=== PATIENT | female | born 1940 | race Hispanic/Latino ===

== ENCOUNTER 2017-05-20 14:25 | Outpatient (CLI) | payer MEDICARE, BC ==
--- NOTE | 2017-05-20 16:56 | RAD ---
EXAM: CERVICAL SPINE THREE VIEWS 05/20/17 HISTORY: Cervical disc degeneration. COMPARISON: 03/31/17. FINDINGS: Stable fusion changes at C5-C6. No perihardware lucency. The disc prosthesis is at the anterior unique in of the C5 level. There is moderate degenerative change at C6-C7. Evaluation of the cervicothoraci c junction is limited. Open mouth projection is suboptimal. On the AP projection, there are degenerative changes of the facets. IMPRESSION: Fusion changes as above. POS: [facility]
== END 2017-05-20 14:26 | disposition home or self-care (01) ==
LOC: TBSIIMAG 14:25
PROVIDERS: ATTEND Neurological Surgery
DX: M50.30 Other cervical disc degeneration, unspecified cervical region (principal); Z98.1 Arthrodesis status
CPT/HCPCS: 72040

== ENCOUNTER 2017-06-01 07:24 | Outpatient (CLI) | payer MEDICARE, BC ==
[2017-06-01 09:23] LABS: Hematocrit 38.5 % (36.0-47.0); Mean Platelet Volume 8.1 fL (7.4-10.4); Red Blood Cell (RBC) Count 4.14 mill/uL (4.20-5.40); White Blood Cell (WBC) Count 6.1 thou/uL (4.8-10.8)
[2017-06-01 09:36] LABS: PTT 28.1 SEC (22.9-36.1)
[2017-06-01 09:49] LABS: ALT (SGPT) 19 U/L (8-55); AST (SGOT) 10 U/L (5-34); Alkaline Phosphatase 117 U/L (40-150); Anion Gap 13 mmol/L (10-20); BUN (Urea Nitrogen) 19 mg/dL (9.8-20.1); Bilirubin, Total 0.3 mg/dL (0.2-1.2); Calc. Creatinine Clearance 0 mL/min (70-130); Carbon Dioxide 26 mmol/L (23-31); Chloride 103 mmol/L (98-107); Estimated GFR-MDRD 53; Globulin 3.2 g/dL (2.4-3.5); Protein, Total 6.9 g/dL (6.0-8.3)
== END 2017-06-01 07:25 | disposition home or self-care (01) ==
LOC: LABBT 07:24
PROVIDERS: ATTEND Internal Medicine Cardiovascular Disease
DX: Z01.818 Encounter for other preprocedural examination (principal); R94.39 Abnormal result of other cardiovascular function study
CPT/HCPCS: 80053; 85027; 85610; 85730; 93005; 93010

== ENCOUNTER 2017-06-05 06:19 | Day surgery (SDC) | payer MEDICARE, BC ==
[2017-06-01 08:31] VITALS: BMI 42.0
[2017-06-05] MEDS ORDERED: Midazolam HCl 2 mg/2 ml Vial ONE (08:38)
[2017-06-05] MEDS ORDERED: Fentanyl 100 MCG/2 ML VIAL ONE (08:38)
[2017-06-05] MEDS ORDERED: Heparin 10,000 UNITS/1 ML VIAL ONE (08:41)
[2017-06-05] MEDS ORDERED: Nitroglycerin 100MG/250ML BOT 250 ML ONE (08:41)
[2017-06-05] MEDS ORDERED: Verapamil 5 MG/2 ML VIAL ONE (08:41)
[2017-06-05] MEDS ORDERED: Iopamidol 370 76% 100 ML VIAL ONE (08:58)
== END 2017-06-05 11:28 | disposition home or self-care (01) ==
LOC: CCL 06:19
PROVIDERS: ATTEND Internal Medicine Cardiovascular Disease
DX: R94.39 Abnormal result of other cardiovascular function study (principal); I10 Essential (primary) hypertension; E11.9 Type 2 diabetes mellitus without complications; Z88.1 Allergy status to other antibiotic agents; Z79.899 Other long term (current) drug therapy; Z90.710 Acquired absence of both cervix and uterus; Z96.659 Presence of unspecified artificial knee joint; Z98.890 Other specified postprocedural states
CPT/HCPCS: 80061; 82962; 93458; C1769; 36416; 99152; J1644; J2250; J3010

== ENCOUNTER 2017-08-20 08:56 | Outpatient (CLI) | payer MEDICARE, BC ==
--- NOTE | 2017-08-20 09:58 | RAD ---
CERVICAL SPINE AP LATERAL STANDARD: HISTORY: M54.4, neck pain. COMPARISON: C-spine radiograph 05/20/17. FINDINGS: ACDF hardware is present at C5-6 without hardware complication. C6-7 narrowing is present with uncin ate process hypertrophy and anterior osteophytes. Moderate facet arthrosis. C1-2 articulation is no rmal. IMPRESSION: Unchanged examination. No evidence for hardware failure. POS: [facility]
== END 2017-08-20 08:57 | disposition home or self-care (01) ==
LOC: RAD 08:56
PROVIDERS: ATTEND Neurological Surgery
DX: M54.2 Cervicalgia (principal)
CPT/HCPCS: 72040

== ENCOUNTER 2017-11-11 14:30 | Emergency (ER) | payer MEDICARE, BC ==
[2017-11-11] MEDS ORDERED: HYDROcodone/Acetaminophen 10/325 mg Tablet ONE (15:51)
[2017-11-11] MEDS ORDERED: Ondansetron ODT 4 MG TAB ONE (15:51)
--- NOTE | 2017-11-11 16:45 | CT ---
NONCONTRAST CT HEAD 11/11/17 HISTORY: Patient tripped and fell in parking lot. Head pain and face pain. COMPARISON: 11/05/16. FINDINGS: again noted are chronic small vessel ischemic changes and cerebral volume loss, overall similar to th e prior exam. There is no evidence of an intraparenchymal or extra-axial hemorrhage. There is a right frontal scalp soft tissue swelling. The underlying calvarial structures are intact, and no depressed calvarial fracture is seen. There has been no other interval change from prior exam. IMPRESSION: 1. Right frontal scalp hematoma without evidence of an underlying fracture. 2. No acute intracranial abnormality demonstrated. 3. Stable chronic small vessel ischemic changes and cerebral volume loss. POS: [facility]
--- NOTE | 2017-11-11 16:54 | CT ---
NONCONTRAST CT FACIAL BONES: 11/11/17 HISTORY: Patient tripped and fell in the parking lot. Patient complains of head and face pain. COMPARISON: 10/07/14. FINDINGS: There is a large amount of anterior scalp soft tissue swelling. The orbits are normal and symmetric i n appearance bilaterally. [place] lenses are not visualized. No retrobulbar hematoma is seen. Degenerative changes are seen in the visualized limited upper cervical spine. The soft tissue swellin g adjacent to the left supraorbital region has resolved. IMPRESSION: 1. Large anterior frontal scalp hematoma. 2. No evidence of a fracture involving the facial bones. 3. Visualized paranasal sinuses and mastoid air cells are clear. 4. Degenerative changes in the cervical spine. POS: [facility]
--- NOTE | 2017-11-11 16:57 | CT ---
CT CERVICAL SPINE WITHOUT CONTRAST 11/11/17 COMPARISON: 11/05/16. HISTORY: Tripped and fell in the parking lot with neck pain. TECHNIQUE: Multiple contiguous axial images were obtained in a CT of the cervical spine without contrast. Sagitt al and coronal reformats were performed. FINDINGS: The patient is status post anterior fusion of C5 and C6. The vertebral bodies demonstrate normal heig ht and alignment without fracture or subluxation. No perihardware lucency is seen. no prevertebral so ft tissue swelling is present. The posterior facets are well aligned. Normal alignment of the skull base with the cervical spine is seen. IMPRESSION: Degenerative changes and postsurgical changes of the cervical spine without acute osseous abnormality . POS: [facility]
[2017-11-11] MEDS ORDERED: Ketorolac Tromethamine 30 MG/ML VIAL ONE (17:01)
--- NOTE | 2017-11-11 17:04 | RAD ---
FOUR VIEWS OF THE LEFT KNEE: 11/11/17 COMPARISON: None. HISTORY: Fall in parking lot and hit face on concrete. Left knee pain. FINDINGS: Four views of the left knee shows the patient to be status post left knee arthroplasty without periha rdware lucency or fracture. There are multiple phleboliths in soft tissues of the leg. Diffuse soft t issue swelling is seen. IMPRESSION: No evidence of acute osseous abnormality. POS: [facility]
== END 2017-11-11 17:43 | disposition home or self-care (01) ==
LOC: ERS 14:30
DX: S00.33XA Contusion of nose, initial encounter (principal); E78.5 Hyperlipidemia, unspecified; K21.9 Gastro-esophageal reflux disease without esophagitis; E11.9 Type 2 diabetes mellitus without complications; I10 Essential (primary) hypertension; Z79.4 Long term (current) use of insulin; Z79.899 Other long term (current) drug therapy; W01.0XXA Fall on same level from slipping, tripping and stumbling without subsequent striking against object, initial encounter
CPT/HCPCS: 70450; 70486; 72125; 96372; J1885; Q0162

== ENCOUNTER 2018-07-13 11:13 | Outpatient (CLI) | payer MEDICARE, BC ==
--- NOTE | 2018-07-13 12:51 | RAD ---
RADIOGRAPH CERVICAL SPINE 4 VIEWS: 07/13/2018 HISTORY: A 78-year-old female with cervical radiculopathy, M54.12. FINDINGS: Anterior metallic plate and screws at C5 and C6. Tiny metallic markers for interbody cage, in a slig htly widened C5-C6 intervertebral disk space. Broad indentation of the inferior endplate of C5, resu lting in loss of height of C5. Questionable similar finding involving the superior endplate of C6. Mild disk space narrowing at C6-C7. C7-T1 junction poorly visualized. The rest of the disk spaces a re maintained. Alignment is normal. No prevertebral soft tissue swelling. IMPRESSION: 1. Status post anterior cervical diskectomy and fusion at C5-C6. 2. Mild degenerative disk disease at C6-C7. TUNG [] POS: [facility]
== END 2018-07-13 11:14 | disposition home or self-care (01) ==
LOC: TBSIIMAG 11:13
PROVIDERS: ATTEND Neurological Surgery
DX: M50.123 Cervical disc disorder at C6-C7 level with radiculopathy (principal); Z98.1 Arthrodesis status
CPT/HCPCS: 72040

== ENCOUNTER 2018-07-13 12:44 | Emergency (ER) | payer MEDICARE, BC ==
[2018-07-13] MEDS ORDERED: HYDROcodone/Acetaminophen 5/325 mg Tablet ONE (13:01)
[2018-07-13] MEDS ORDERED: Lorazepam 2 MG/ML VIAL ONE (13:01)
--- NOTE | 2018-07-13 13:33 | CT ---
CT BRAIN WITHOUT CONTRAST: HISTORY: Fall with head trauma and right shoulder pain. COMPARISON: 11/11/2017 TECHNIQUE: Multiple contiguous axial images were obtained in a CT of the brain without contrast. FINDINGS: This exam is limited secondary to motion artifact. There is apparent hypodensity in the bilateral pa rietal occipital regions, but this may be artifactual. This is not definitely seen on the prior exam ination. Scattered hypodensities in the subcortical and periventricular white matter are likely seco ndary to small vessel ischemic disease. There is no evidence of hydrocephalus, intracranial hemorrha ge, or extraaxial fluid collection. There is soft tissue swelling in the right frontal scalp. The underlying calvarium is unremarkable. The visualized paranasal sinuses and mastoid air cells are well aerated. IMPRESSION: Questionable hypodense regions in the bilateral parietal and occipital lobes. This could be artifact ual or could be secondary to bilateral posterior cerebral artery infarctions. Correlate with symptom s. An MRI of the brain may be necessary for better characterization. There is no evidence of intrac ranial hemorrhage. POS: [facility]
--- NOTE | 2018-07-13 13:35 | CT ---
CT CERVICAL SPINE WITHOUT CONTRAST: HISTORY: Fall with head trauma and neck pain. COMPARISON: 11/11/2017 TECHNIQUE: Multiple contiguous axial images were obtained in a CT of the cervical spine without contrast. Sagit lukas and coronal reformats were performed. FINDINGS: The patient is status post anterior fusion of C5 and C6. The vertebral bodies demonstrate normal hei ght without fracture or subluxation. No prevertebral soft tissue swelling is seen. Moderate degener ative changes are seen in the lower cervical spine. The posterior facets are well aligned. Normal alignment of the skull base with the cervical spine is seen. IMPRESSION: Post surgical changes and degenerative changes of the cervical spine without acute osseous abnormalit y. POS: [facility]
[2018-07-13] MEDS ORDERED: PROPOFOL 0 ML ONE (13:45)
--- NOTE | 2018-07-13 14:22 | RAD ---
RIGHT SHOULDER TWO VIEW SERIES: Indication: Post-traumatic pain. FINDINGS: There is anterior and inferior dislocation of the proximal humerus relative to the scapular glenoid. There is fracture fragmentation associated with the dislocation. IMPRESSION: Fracture dislocation of the right shoulder. Recommend orthopedic consultation. POS: [facility]
[2018-07-13] MEDS ORDERED: Fentanyl 100 MCG/2 ML VIAL ONE ×2 (14:32→14:56)
[2018-07-13] MEDS ORDERED: PROPOFOL 20 ML ONE (15:17)
[2018-07-13] MEDS ORDERED: Ketorolac Tromethamine 30 MG/ML VIAL ONE (15:33)
--- NOTE | 2018-07-13 17:03 | RAD ---
2 VIEWS RIGHT SHOULDER: Date: 07/13/18 HISTORY: Fracture/dislocation right shoulder. COMPARISON: 07/13/18 at 1326 hours. FINDINGS: Two views of the right shoulder were performed. Both were marked post reduction. The first image show s inferior dislocation of the glenohumeral joint. The second image appears to show reduction of the s houlder with appropriate alignment of the glenohumeral joint. IMPRESSION: Interval reduction of the shoulder dislocation on the second image. POS: [facility]
--- NOTE | 2018-07-14 02:15 | CON ---
DATE OF CONSULTATION: CHIEF COMPLAINT: Right shoulder pain. HISTORY OF PRESENT ILLNESS: Ms. Brown is a 78-year-old female who was walking out of an office this afternoon, she tripped and fell forward. She landed on her right side. She had immediate shoulder pain and inability to raise her arm. She was taken by EMS to the emergency department. X-rays were obtained, which demonstrated anterior and inferior shoulder fracture dislocation. An attempted reduction was performed in the emergency room; however, this was unsuccessful. Orthopedics was consulted to further evaluate the patient. She is currently resting comfortably , but does have pain within the attempted shoulder motion. She is right-hand dominant. Family is at the bedside. PAST MEDICAL HISTORY: Chronic pain, hyperlipidemia, hypercholesterolemia, GERD, diabetes, and obesity. PAST SURGICAL HISTORY: Hysterectomy, appendectomy, cholecystectomy, and previous bilateral total knee arthroplasty. SOCIAL HISTORY: The patient denies tobacco, alcohol, or drug use. Her family is with her in the hospital today. FAMILY MEDICAL HISTORY: Noncontributory. REVIEW OF SYSTEMS: Positive for right shoulder pain, otherwise negative 10-point review of systems. ALLERGIES: TO CELEBREX. IMAGING STUDIES: X-rays demonstrate an anterior and inferior dislocation of the right shoulder. The patient also has fracture with comminution of the rotator cuff footprint at the greater tuberosity. PHYSICAL EXAMINATION: VITAL SIGNS: Blood pressure is 189/78, pulse is 71, respiratory rate is 18, and oxygen saturation is 99% on 2 L oxygen. GENERAL: She is lying supine, in no apparent distress. HEENT: Normocephalic, atraumatic. RESPIRATORY: Breathing comfortably. ABDOMEN: Obese, nontender. CARDIOVASCULAR: Pulses are palpable and regular. MUSCULOSKELETAL: The patient's right upper extremity has prominence of the humeral head anteriorly. She has pain with gentle motion. Full motion was not tested. She is able to flex and extend the digits. She cannot abduct the arm. She reports some numbness around the proximal shoulder. Palpable radial pulse. IMPRESSION: Right shoulder dislocation with fracture of the greater tuberosity suggestive of rotator cuff tear. PLAN: At this point, the patient needs a closed reduction maneuver. We will perform this in the emergency department using conscious sedation. She will be placed in a sling. At that point, she can go home, but followup in approximately 2 weeks for further evaluation. If she has significant dysfunction with rotator cuff weakness, we may need to obtain an MRI to better evaluate the rotator cuff. We will start her shoulder rehabilitation in 2 weeks. For now, she should stay in her sling and avoid abduction and external rotation. PROCEDURE NOTE: The patient was given propofol sedation. At this point, we performed a traction and counter-traction maneuver. The shoulder also required a superiorly directed force. Initial reduction was unsuccessful; however, repeat reduction was successful to reduce the shoulder, we confirmed this on x-ray exam. The patient awoke from her sedation in good condition. Job ID: [id number]
== END 2018-07-13 17:30 | disposition home or self-care (01) ==
LOC: ERS 12:44
DX: S43.034A Inferior dislocation of right humerus, initial encounter (principal); E78.5 Hyperlipidemia, unspecified; K21.9 Gastro-esophageal reflux disease without esophagitis; E11.9 Type 2 diabetes mellitus without complications; I10 Essential (primary) hypertension; Z79.899 Other long term (current) drug therapy; Z79.4 Long term (current) use of insulin; W01.0XXA Fall on same level from slipping, tripping and stumbling without subsequent striking against object, initial encounter
CPT/HCPCS: 23650; 70450; 72040; 72125; 96361; 96374; 96375; 99152; 99153; 99156; 99157; J1885; J2060; J2704; J3010

== ENCOUNTER 2018-07-23 02:13 | Emergency (ER) | payer MEDICARE, BC ==
[2018-07-23] MEDS ORDERED: HYDROcodone/Acetaminophen 10/325 mg Tablet ONE (03:04)
--- NOTE | 2018-07-23 08:08 | RAD ---
RIGHT HUMERUS 2 VIEWS: Date: 07/23/18 HISTORY: Dislocated a week ago. Persistent pain. FINDINGS: Multiple calification likely due to prior trauma. Probable fracture fragments. Irregularity along g reater tuberosity. Remainder of the right humerus is unremarkable. IMPRESSION: As above. POS: [facility]
--- NOTE | 2018-07-23 08:17 | RAD ---
RIGHT SHOULDER THREE VIEWS: HISTORY: Recent dislocation. Persistent pain. COMPARISON: 07/13/2018 FINDINGS: Multiple fracture fragments are redemonstrated. Irregularity involving the greater tuberosity. Bett er interrogation with MRI is recommended. IMPRESSION: Redemonstration of multiple fracture fragments. MRI is recommended. CODE T POS: [facility]
== END 2018-07-23 03:39 | disposition home or self-care (01) ==
LOC: ERS 02:13
DX: M25.511 Pain in right shoulder (principal); E78.5 Hyperlipidemia, unspecified; K21.9 Gastro-esophageal reflux disease without esophagitis; E11.9 Type 2 diabetes mellitus without complications; I10 Essential (primary) hypertension; Z79.899 Other long term (current) drug therapy; Z79.4 Long term (current) use of insulin

== ENCOUNTER 2018-08-19 07:37 | Outpatient (CLI) | payer MEDICARE, BC ==
--- NOTE | 2018-08-19 12:24 | MRI ---
MRI RIGHT SHOULDER: Date: 08/19/18 PROVIDED CLINICAL HISTORY: Right shoulder pain. FINDINGS: Comparison is made with right shoulder radiographs dated 07/23/18. There is marked marrow edema within the humeral head, particularly laterally. There is evidence for H ill-Sachs impaction fracture/greater tuberosity fracture, with several small displaced bone fragments , better demonstrated on previously performed radiograph. There is a markedly heterogeneous appearanc e to the components of the distal conjoined tendon. There are multiple small full thickness appearing foci of true fluid signal intensity involving the distal conjoined tendon. There is evidence for ass ociated partial thickness undersurface tearing with retraction of undersurface component to approxima tely the level of the acromion. No additional retracted tear is evident. The subscapularis and teres minor tendons appear intact. The long head biceps tendon appears intact and is normally located. There is a large glenohumeral joint effusion. Multiple intraarticular bodies are seen, including in t he axillary recess and superior subscapularis recess. The largest of these is located in the axillary recess and measures approximately 1.0 cm in greatest craniocaudal dimension. No displaced tear of th e glenoid labrum is evident. There is an indistinct and hyperintense appearance on fluid sensitive se quences involving the inferior glenohumeral ligament, particularly near its humeral attachment acls nurse iorly. Acromioclavicular joint osteoarthrosis is demonstrated. There is greater than physiologic subacromial /subdeltoid bursal fluid. Rotator cuff muscular volume appears preserved. Patchy increased signal int ensity on fluid sensitive sequences involving subscapularis and teres minor muscles. IMPRESSION: 1. Evidence for Hill-Sachs impaction/greater tuberosity fracture with comminution and displacement o f several fragments, better demonstrated on prior radiographs. No displaced glenoid labral tear is ev ident. There is partial tearing of the inferior glenohumeral ligament from its humeral attachment. 2. High grade partial thickness undersurface retracted tearing of the supraspinatus tendon with mult iple small full thickness foci of linear fluid signal intensity involving the nonretracted superficia l fibers of the distal conjoined tendon compatible with foci of full thickness tearing. 3. Large glenohumeral joint effusion with intraarticular bodies. 4. Muscular strains involving subscapularis and teres minor muscles. 5. Acromioclavicular joint osteoarthrosis. POS: [facility]
== END 2018-08-19 07:38 | disposition home or self-care (01) ==
LOC: MRI 07:37
PROVIDERS: ATTEND Orthopaedic Surgery
DX: S43.004A Unspecified dislocation of right shoulder joint, initial encounter (principal); M19.011 Primary osteoarthritis, right shoulder; M25.411 Effusion, right shoulder; S42.91XA Fracture of right shoulder girdle, part unspecified, initial encounter for closed fracture; S46.811A Strain of other muscles, fascia and tendons at shoulder and upper arm level, right arm, initial encounter

== ENCOUNTER 2018-09-22 20:11 | Emergency (ER) | payer MEDICARE, BC ==
--- NOTE | 2018-09-22 22:17 | RAD ---
THREE VIEWS OF THE RIGHT FOOT: 09/22/18 INDICATION: Laceration right foot. COMPARISON: None. FINDINGS: There is scattered osteoarthrosis of the right foot. No acute fracture or subluxation is evident. Ent hesopathic changes seen off of the calcaneus. IMPRESSION: No acute osseous abnormality. POS: [facility]
[2018-09-22] MEDS ORDERED: Adacel (T-DAP) 0.5 ML SYRINGE ONE (22:36)
[2018-09-22] MEDS ORDERED: Lidocaine 1% (PF) 30 ML VIAL ONE (22:49)
[2018-09-22] MEDS ORDERED: Bacitracin Zinc 1 Packet ONE (23:36)
== END 2018-09-22 23:00 | disposition home or self-care (01) ==
LOC: ERS 20:11
DX: S91.311A Laceration without foreign body, right foot, initial encounter (principal); E78.5 Hyperlipidemia, unspecified; K21.9 Gastro-esophageal reflux disease without esophagitis; E11.9 Type 2 diabetes mellitus without complications; I10 Essential (primary) hypertension; F32.9 Major depressive disorder, single episode, unspecified; Z79.899 Other long term (current) drug therapy; Z79.4 Long term (current) use of insulin; W26.9XXA Contact with unspecified sharp object(s), initial encounter
CPT/HCPCS: 12001; 90471; 90715; J2001

== ENCOUNTER 2018-09-23 06:44 | Day surgery (SDC) | payer MEDICARE, BC ==
[2018-09-22 15:41] VITALS: BMI 42.0
[~2018-09-23 06:44] MED LIST: Prevnar 13-Val Conj/PF 0.5 ML SYRINGE IM ONE
--- NOTE | 2018-09-23 09:28 | RAD ---
CERVICAL MYELOGRAM: HISTORY: M47.12, cervical spondylosis with myelopathy. COMPARISON: None. FINDINGS: The patient was brought to the fluoroscopy suite. All questions were answered. The patient's back was prepped and draped in the normal sterile fashion. Informed consent was obtain ed. A time out was performed. Approximately 3 mL of buffered Lidocaine was instilled into the superficial and deep soft tissues. U sing a 5-inch 22 gauge spinal needle, the L3-L4 interspace was accessed, and 10 mL of Isovue-300 was instilled into the thecal sac. The patient was put in the reverse Trendelenburg position. IMPRESSION: Technically successful fluoroscopic-guided cervical myelogram. FLUOROSCOPY TIME: One minute. POS: [facility]
--- NOTE | 2018-09-23 10:38 | CT ---
CT CERVICAL SPINE WITH CONTRAST: Date: 09/21/18 HISTORY: Pain. COMPARISON: Myelogram same date. CT cervical spine without contrast dated 07/13/18. FINDINGS: CT cervical spine performed after the intrathecal administration of contrast. ACDF hardware at C5-6 is intact with diskectomy change without migration of the diskectomy spacer. No acute fracture or malalignment. Advanced degenerative disease of the atlantodental interval. The o ccipital condyles are intact. No cervical adenopathy. Lung apices are clear. Levels are as follows: C2-3: There is mild uncinate process hypertrophy bilaterally. There is a right lateral recess teletypewriter installer ior disc osteophyte complex. Mild right-sided neural foraminal narrowing. No significant spinal canal narrowing. There is fusion of the right C2-C3 facet with moderate degenerative disease at the left C 2-3 facet joint. C3-4: Mild degenerative disc space height loss. Mild uncinate process hypertrophy. There is severe l eft-sided facet arthropathy and hypertrophic osteophyte formation. This causes mild left-sided neural foraminal narrowing. No significant right-sided neural foraminal narrowing. C4-5: There is a broad based posterior disc osteophyte complex. This causes mild effacement of the ventral CSF space with spinal canal measuring approximately 9.0 mm. There is moderate uncinate process hypert rophy, worse on the right than the left. There is severe right and moderate left-sided facet arthropa thy. Moderate to severe right and moderate left-sided neural foraminal narrowing. C5-6: There is a broad based posterior disc osteophyte complex causing mild effacement of the ventra l CSF space. Spinal canal measures approximately 7.0 mm. Moderate uncinate process hypertrophy. There is moderate left and moderate right-sided hypertrophic facet changes. There is moderate bilateral ne ural foraminal narrowing, predominantly due to uncinate process hypertrophy. C6-7: There is mild uncinate process hypertrophy. Small bilateral subforaminal disc osteophyte compl exes. Mild facet arthropathy on the right and moderate on the left. No significant neural foraminal n arrowing on the right. Uncinate process hypertrophy with moderate neural foraminal narrowing on the l eft. IMPRESSION: Mild to moderate spondylosis as described. No evidence for hardware failure. POS: [facility]
== END 2018-09-23 10:20 | disposition home or self-care (01) ==
LOC: RAD 06:44 → EDSTATUS 08:00 → RAD 10:20
PROVIDERS: ATTEND Neurological Surgery
PROC: B01B1ZZ Fluoroscopy of Spinal Cord using Low Osmolar Contrast (ICD-10-PCS; principal; 2018-09-23)
DX: M47.12 Other spondylosis with myelopathy, cervical region (principal); E11.9 Type 2 diabetes mellitus without complications; M19.90 Unspecified osteoarthritis, unspecified site; G47.00 Insomnia, unspecified; I10 Essential (primary) hypertension; E78.5 Hyperlipidemia, unspecified; K21.9 Gastro-esophageal reflux disease without esophagitis; Z79.4 Long term (current) use of insulin; Z79.899 Other long term (current) drug therapy; Z88.6 Allergy status to analgesic agent
CPT/HCPCS: 62302; 72126

== ENCOUNTER 2018-11-25 15:08 | Outpatient (CLI) | payer MEDICARE, BC ==
--- NOTE | 2018-11-25 15:16 | RAD ---
Exam:Right foot 3 views HISTORY: Wound pain. COMPARISON: 09/22/2018 FINDINGS: Lisfranc alignment is maintained. Chronic changes. No acute fracture. Stable hypertrophy of the calcaneus at the Achilles tendon insertion site and the insertion site of the plantar aponeurosis. Soft tissue swelling and possible ulceration of the plantar soft tissues at the level of the calcaneus. IMPRESSION: 1. No acute osseous abnormality. 2. Possible plantar soft tissue swelling and ulceration at the level calcaneus.
== END 2018-11-25 15:09 | disposition home or self-care (01) ==
LOC: RAD-FRANK 15:08
PROVIDERS: ATTEND Nurse Practitioner Family
DX: S91.301A Unspecified open wound, right foot, initial encounter (principal)

== ENCOUNTER 2019-07-14 15:39 | Outpatient (CLI) | payer MEDICARE, BC ==
--- NOTE | 2019-07-14 15:53 | RAD ---
RADIOGRAPH CHEST 2 VIEWS: 07/14/2019 HISTORY: A 79-year-old female with abnormal breath sounds, wheezing. FINDINGS: The thoracic aorta is tortuous and ectatic. There is no evidence of air space density, pneumothorax, or pulmonary edema. There is no cardiomegaly or pleural effusion. IMPRESSION: 1) No acute cardiopulmonary findings. 2) Ectasia of thoracic aorta. jayjay [] POS: [facility]
== END 2019-07-14 15:40 | disposition home or self-care (01) ==
LOC: RAD-FRANK 15:39
PROVIDERS: ATTEND Nurse Practitioner Family
DX: J01.10 Acute frontal sinusitis, unspecified (principal); R06.2 Wheezing; R68.89 Other general symptoms and signs; R05 Cough; I77.810 Thoracic aortic ectasia
CPT/HCPCS: 71046

== ENCOUNTER 2019-08-09 09:24 | Outpatient (CLI) | payer MEDICARE, BC ==
--- NOTE | 2019-08-09 10:45 | MRI ---
EXAM: MRI of right ankle without contrast PROVIDED CLINICAL HISTORY: Cutaneous abscess COMPARISON: None FINDINGS: The region of clinical interest is not indicated by the technologist. Regional marrow and muscular signal appear normal. There is no regional joint effusion is evident. Alignment appears anatomic. Joint spaces appear prese rved. No significant regional tenosynovial fluid. Split tearing of the peroneus brevis tendon is noted. The anterior extensor, medial flexor and peroneal tendons appear otherwise intact. The examina tion is not optimized for evaluation for internal derangement. Intact fibers of the anterior talofibular ligament are not definitely identified. There is no evidence for a focal fluid collection to suggest abscess, with limitations due to lack of IV contrast. IMPRESSION: 1. No evidence for focal fluid collection to suggest abscess with limitations due to lack of IV contr ast. 2. Split tearing of the peroneus brevis tendon at the level of the lateral malleolus.
== END 2019-08-09 09:25 | disposition home or self-care (01) ==
LOC: MRI 09:24
PROVIDERS: ATTEND Podiatrist
DX: L02.611 Cutaneous abscess of right foot (principal); E11.40 Type 2 diabetes mellitus with diabetic neuropathy, unspecified; S96.911A Strain of unspecified muscle and tendon at ankle and foot level, right foot, initial encounter

== ENCOUNTER 2021-11-07 13:21 | Outpatient (CLI) | payer MEDICARE | END 2021-11-07 13:22 | disposition home or self-care (01) | LOC: RAD-FRANK 13:21 | PROVIDERS: ATTEND Nurse Practitioner Family | DX: M79.641 Pain in right hand (principal); M19.041 Primary osteoarthritis, right hand ==

== ENCOUNTER 2022-07-16 10:21 | Emergency (ER) | payer MEDICARE ==
[2022-07-16] MEDS ORDERED: Morphine 4 MG/ML VIAL ONE (12:42)
== END 2022-07-16 13:29 | disposition home or self-care (01) ==
LOC: ERS 10:21
DX: S70.01XA Contusion of right hip, initial encounter (principal); E78.00 Pure hypercholesterolemia, unspecified; K21.9 Gastro-esophageal reflux disease without esophagitis; E11.9 Type 2 diabetes mellitus without complications; I10 Essential (primary) hypertension; Z79.899 Other long term (current) drug therapy; Z79.4 Long term (current) use of insulin; W19.XXXA Unspecified fall, initial encounter
CPT/HCPCS: 96372; J2270

== ENCOUNTER 2023-09-29 10:54 | Emergency (ER) | payer MEDICARE ==
[2023-09-29] MEDS ORDERED: Acetaminophen 500 MG TAB ONE (12:09)
[2023-09-29] MEDS ORDERED: Lidocaine 4% Patch TD SCH (12:30)
[2023-09-30] MEDS ORDERED: Transdermal Patch Removal TOP SCH (00:30)
== END 2023-09-29 13:54 | disposition home or self-care (01) ==
LOC: ERS 10:54
DX: R07.89 Other chest pain (principal); I10 Essential (primary) hypertension; E11.9 Type 2 diabetes mellitus without complications; K21.9 Gastro-esophageal reflux disease without esophagitis; E78.00 Pure hypercholesterolemia, unspecified; W18.09XA Striking against other object with subsequent fall, initial encounter; Y93.01 Activity, walking, marching and hiking; Z55.6 Problems related to health literacy; Z79.4 Long term (current) use of insulin; Z79.899 Other long term (current) drug therapy
CPT/HCPCS: 71045

== ENCOUNTER 2023-10-02 10:50 | Outpatient (CLI) | payer MEDICARE | END 2023-10-02 10:51 | disposition home or self-care (01) | LOC: BICRAD 10:50 | PROVIDERS: ATTEND Nurse Practitioner Family | DX: R58 Hemorrhage, not elsewhere classified (principal); R29.6 Repeated falls; M47.816 Spondylosis without myelopathy or radiculopathy, lumbar region; M51.34 Other intervertebral disc degeneration, thoracic region | CPT/HCPCS: 72072; 72100 ==

== ENCOUNTER 2024-02-12 06:13 | Emergency (ER) | payer MEDICARE ==
[2024-02-12 08:16] LABS: #Basophils Less than 0.03 10x3/uL (0.0-0.2); %Basophils 0.2 % (0.0-1.0); %Eosinophils 1.9 % (0.0-10.0); %Lymphocytes 16.9 % (21.0-51.0); %Monocytes 10.2 % (0.0-10.0); %Neutrophils 70.3 % (42.0-75.0); Hematocrit 37.8 % (36.0-47.0); Hemoglobin 12.4 g/dL (12.0-16.0); Mean Corpuscular HGB CONC 32.8 g/dL (32.0-36.0); Mean Corpuscular Hemoglobin 31.4 pg (27.0-31.0); Mean Corpuscular Volume 95.7 fL (78.0-98.0); Mean Platelet Volume 10.2 fL (7.4-10.4); Platelet Count 188 10x3/uL (130-400); RBC Distribution Width 13.2 % (11.5-14.5); Red Blood Cell (RBC) Count 3.95 mill/uL (4.20-5.40)
[2024-02-12] MEDS ORDERED: Morphine 4 MG/ML VIAL ONE (08:18)
[2024-02-12] MEDS ORDERED: Ondansetron PF 4 MG/2 ML Vial ONE (08:18)
[2024-02-12 08:28] LABS: Bacteria/HPF 4+ HPF (None Seen); Bilirubin 1+ (Negative); Blood, Urine Trace (Negative); CAUTI Indications for Culture Pelvic or flank pain; Clarity Turbid (Clear); Glucose, Urine (Dipstick) 50 mg/dL (Negative); Ketone, Urine Trace mg/dL (Negative); Leukocyte 75 Leu/uL (Negative); Nitrite 2+ (Negative); Protein, Urine (Dipstick) 600 mg/dL (Neg-Trace); Specific Gravity, Urine 1.028 (1.002-1.036); WBC/HPF Greater than 50 HPF (0-3)
[2024-02-12 08:32] LABS: ALT (SGPT) 142 U/L (8-55); AST (SGOT) 62 U/L (5-34); Albumin 3.2 g/dL (3.4-4.8); Alkaline Phosphatase 190 U/L (40-110); Anion Gap 15 mmol/L (10-20); BUN (Urea Nitrogen) 22 mg/dL (9.8-20.1); Bilirubin, Total 0.5 mg/dL (0.2-1.2); Calc. Creatinine Clearance 0 mL/min (70-130); Calcium 8.9 mg/dL (7.8-10.44); Carbon Dioxide 20 mmol/L (23-31); Chloride 107 mmol/L (98-107); Estimated GFR 46; Globulin 3.4 g/dL (2.4-3.5); Glucose 208 mg/dL (83-110); Potassium 3.5 mmol/L (3.5-5.1); Protein, Total 6.6 g/dL (5.8-8.1); Sodium 138 mmol/L (136-145)
[2024-02-12 08:37] LABS: Troponin I Less than 0.010 ng/mL (< 0.028)
[2024-02-12 08:45] LABS: Urine Culture Reflex Yes Yes
[2024-02-12] MEDS ORDERED: Iopamidol-370 76% 500 ML MDV (1 ML CHARGE) ONE (11:34)
[2024-02-12 15:29] LABS: Campy jejuni + coli by PCR Negative (Negative); STEC Shiga Toxin 1+2 Negative (Negative); Salmonella spp. by PCR Negative (Negative); Shigella spp + EIEC by PCR Negative (Negative)
== END 2024-02-12 10:13 | disposition home or self-care (01) ==
LOC: ERS 06:13
DX: N39.0 Urinary tract infection, site not specified (principal); D73.4 Cyst of spleen; R19.7 Diarrhea, unspecified; Q44.5 Other congenital malformations of bile ducts; I10 Essential (primary) hypertension; E11.9 Type 2 diabetes mellitus without complications
CPT/HCPCS: 74177; 80053; 81001; 83690; 84484; 85025; 87077; 87086; 87186; 87505; 93005; J2270; J2405; Q9967; 51701; 96374; 96375

== ENCOUNTER 2024-02-17 11:21 | Emergency (ER) | payer MEDICARE ==
[2024-02-17 12:09] LABS: #Basophils Less than 0.03 10x3/uL (0.0-0.2); %Basophils 0.4 % (0.0-1.0); %Eosinophils 2.3 % (0.0-10.0); %Lymphocytes 27.6 % (21.0-51.0); %Monocytes 10.6 % (0.0-10.0); %Neutrophils 58.3 % (42.0-75.0); Hematocrit 35.5 % (36.0-47.0); Mean Corpuscular HGB CONC 33.8 g/dL (32.0-36.0); Mean Corpuscular Hemoglobin 31.5 pg (27.0-31.0); Mean Corpuscular Volume 93.2 fL (78.0-98.0); Mean Platelet Volume 10.1 fL (7.4-10.4); Platelet Count 237 10x3/uL (130-400); RBC Distribution Width 13.2 % (11.5-14.5); Red Blood Cell (RBC) Count 3.81 mill/uL (4.20-5.40)
[2024-02-17 12:39] LABS: ALT (SGPT) 51 U/L (8-55); AST (SGOT) 22 U/L (5-34); Albumin 3.3 g/dL (3.4-4.8); Alkaline Phosphatase 104 U/L (40-110); Anion Gap 12 mmol/L (10-20); BUN (Urea Nitrogen) 15 mg/dL (9.8-20.1); Bilirubin, Total 0.4 mg/dL (0.2-1.2); Calc. Creatinine Clearance 0 mL/min (70-130); Calcium 8.7 mg/dL (7.8-10.44); Carbon Dioxide 21 mmol/L (23-31); Chloride 114 mmol/L (98-107); Estimated GFR 57; Globulin 3.4 g/dL (2.4-3.5); Glucose 138 mg/dL (83-110); Potassium 3.6 mmol/L (3.5-5.1); Protein, Total 6.7 g/dL (5.8-8.1); Sodium 143 mmol/L (136-145)
[2024-02-17] MEDS ORDERED: Ketorolac Tromethamine 30 MG (1 mL) VIAL ONE (12:58)
[2024-02-17] MEDS ORDERED: Ondansetron PF 4 MG/2 ML Vial ONE (12:58)
[2024-02-17] MEDS ORDERED: Loperamide HCl 2 MG CAP ONE ×2 (14:34→14:38)
== END 2024-02-17 14:58 | disposition home or self-care (01) ==
LOC: ERS 11:21
DX: A09 Infectious gastroenteritis and colitis, unspecified (principal); E78.00 Pure hypercholesterolemia, unspecified; K21.9 Gastro-esophageal reflux disease without esophagitis; E11.9 Type 2 diabetes mellitus without complications; I10 Essential (primary) hypertension; Z79.4 Long term (current) use of insulin; Z79.899 Other long term (current) drug therapy
CPT/HCPCS: 80053; 85025; J1885; J2405; 96361; 96374; 96375

== ENCOUNTER 2024-07-07 12:59 | Inpatient (IN) | payer MEDICARE, OTHER ==
[2024-07-07] MEDS ORDERED: Acetaminophen 325 MG TAB ONE (13:52)
[2024-07-07] MEDS ORDERED: Piperacillin/Tazobactam 4.5 GM VIAL ONE (13:53)
[2024-07-07] MEDS ORDERED: Sodium Chloride 0.9% 100 ML ONE (13:53)
[2024-07-07 14:00] LABS: #Basophils Less than 0.03 10x3/uL (0.0-0.2); %Basophils 0.4 % (0.0-1.0); %Lymphocytes 24.2 % (21.0-51.0); %Monocytes 7.9 % (0.0-10.0); %Neutrophils 64.1 % (42.0-75.0); Hematocrit 32.5 % (36.0-47.0); Mean Corpuscular HGB CONC 33.8 g/dL (32.0-36.0); Mean Corpuscular Hemoglobin 31.1 pg (27.0-31.0); Mean Corpuscular Volume 91.8 fL (78.0-98.0); Mean Platelet Volume 10.6 fL (7.4-10.4); Platelet Count 214 10x3/uL (130-400); RBC Distribution Width 12.7 % (11.5-14.5); Red Blood Cell (RBC) Count 3.54 mill/uL (4.20-5.40)
[2024-07-07] MEDS ORDERED: Senokot S 8.6-50 MG TAB PO PRN (14:39)
[2024-07-07] MEDS ORDERED: Ondansetron ODT 4 MG TAB PO PRN (14:39)
[2024-07-07] MEDS ORDERED: Ondansetron PF 4 MG/2 ML Vial IVP PRN (14:39)
[2024-07-07] MEDS ORDERED: Dextrose 50% Abboject 50 ML SYRINGE SLOW IVP PRN (14:41)
[2024-07-07] MEDS ORDERED: Dextrose 5% in Water 1,000 ML IV PRN (14:41)
[2024-07-07] MEDS ORDERED: Glucagon 1 MG/ML KIT IM PRN (14:41)
[2024-07-07 15:06] LABS: ALT (SGPT) 10 U/L (8-55); AST (SGOT) 11 U/L (5-34); Albumin 2.9 g/dL (3.4-4.8); Alkaline Phosphatase 92 U/L (40-110); Anion Gap 11 mmol/L (10-20); BUN (Urea Nitrogen) 21 mg/dL (9.8-20.1); Bilirubin, Total 0.3 mg/dL (0.2-1.2); Calc. Creatinine Clearance 0 mL/min (70-130); Calcium 8.7 mg/dL (7.8-10.44); Carbon Dioxide 23 mmol/L (23-31); Chloride 110 mmol/L (98-107); Estimated GFR 58; Globulin 3.7 g/dL (2.4-3.5); Glucose 223 mg/dL (83-110); Potassium 4.3 mmol/L (3.5-5.1); Protein, Total 6.6 g/dL (5.8-8.1); Sodium 140 mmol/L (136-145)
[2024-07-07] MEDS: Amlodipine 5 MG TAB PO SCH (17:23)
[2024-07-07 17:44] VITALS: BMI 39.9
[2024-07-07] MEDS: Vancomycin (BATCH) 2.5 GM in Premix 1 BAG IVPB SCH (18:09)
[2024-07-07] MEDS: Ampicillin/Sulbactam 3 GM in Sodium Chloride 0.9% 100 ML IVPB SCH (18:20)
[2024-07-07] MEDS: Insulin Lispro 100 UNIT/ML 10 ML VIAL SC PRN ×2 (18:21→21:27)
[2024-07-07] MEDS ORDERED: Melatonin 3 MG TAB PO PRN (18:58)
[2024-07-07] MEDS: hydrALAZINE 20 MG/ML VIAL SLOW IVP SCH (19:45)
[2024-07-07] MEDS: Acetaminophen 325 MG TAB PO PRN (21:38)
[2024-07-08 04:51] LABS: #Basophils 0.03 10x3/uL (0.0-0.2); %Basophils 0.7 % (0.0-1.0); %Eosinophils 4.8 % (0.0-10.0); %Lymphocytes 24.3 % (21.0-51.0); %Monocytes 10.3 % (0.0-10.0); %Neutrophils 58.9 % (42.0-75.0); Hemoglobin 10.5 g/dL (12.0-16.0); Mean Corpuscular HGB CONC 33.9 g/dL (32.0-36.0); Mean Corpuscular Hemoglobin 30.6 pg (27.0-31.0); Mean Corpuscular Volume 90.4 fL (78.0-98.0); Mean Platelet Volume 10.5 fL (7.4-10.4); Platelet Count 188 10x3/uL (130-400); RBC Distribution Width 12.6 % (11.5-14.5); Red Blood Cell (RBC) Count 3.43 mill/uL (4.20-5.40)
[2024-07-08 05:42] LABS: Anion Gap 11 mmol/L (10-20); BUN (Urea Nitrogen) 17 mg/dL (9.8-20.1); Calc. Creatinine Clearance 102 mL/min (70-130); Calcium 8.4 mg/dL (7.8-10.44); Carbon Dioxide 25 mmol/L (23-31); Chloride 108 mmol/L (98-107); Estimated GFR 72; Glucose 147 mg/dL (83-110); Sodium 140 mmol/L (136-145)
[2024-07-08] MEDS ORDERED: Non-Formulary Item 1 EACH (Losartan/Hydrochlorothiazide [Losartan-Hctz 100-25 Mg Tab] 1 E PO SCH (09:00)
[2024-07-08] MEDS: Hydrochlorothiazide 25 MG TAB PO SCH (09:10)
[2024-07-08] MEDS: Mirabegron ER 25 MG ER.TAB PO SCH (09:10)
[2024-07-08] MEDS: Amlodipine 5 MG TAB PO SCH (09:11)
[2024-07-08] MEDS: Sertraline 100 MG TAB PO SCH (09:11)
[2024-07-08] MEDS: Enoxaparin 40 MG (0.4 mL) SYRINGE SC SCH (09:11)
[2024-07-08] MEDS: Losartan 25 MG TAB PO SCH (09:11)
[2024-07-08 11:10] VITALS: BMI 39.9
[2024-07-08] MEDS: Sodium Chloride 0.9% 1,000 ML IV SCH (11:57)
[2024-07-08] MEDS: VANCOMYCIN 1.25 GM/250 ML BAG 1.25 GM in Premix 1 BAG IVPB SCH (16:51)
[2024-07-09 05:30] LABS: #Basophils Less than 0.03 10x3/uL (0.0-0.2); %Basophils 0.6 % (0.0-1.0); %Lymphocytes 29.7 % (21.0-51.0); %Monocytes 11.7 % (0.0-10.0); %Neutrophils 52.2 % (42.0-75.0); Hematocrit 30.3 % (36.0-47.0); Hemoglobin 10.2 g/dL (12.0-16.0); Mean Corpuscular HGB CONC 33.7 g/dL (32.0-36.0); Mean Corpuscular Volume 92.1 fL (78.0-98.0); Platelet Count 193 10x3/uL (130-400); RBC Distribution Width 12.7 % (11.5-14.5); Red Blood Cell (RBC) Count 3.29 mill/uL (4.20-5.40)
[2024-07-09 05:43] LABS: Anion Gap 10 mmol/L (10-20); BUN (Urea Nitrogen) 18 mg/dL (9.8-20.1); Calc. Creatinine Clearance 97 mL/min (70-130); Calcium 8.3 mg/dL (7.8-10.44); Carbon Dioxide 24 mmol/L (23-31); Cardiac Risk 5.6 (Less than 4.5); Chloride 107 mmol/L (98-107); Cholesterol 150 mg/dl (< 200 Desired); Estimated GFR 68; Glucose 241 mg/dL (83-110); HDL Cholesterol 27 mg/dL (>60 Neg Risk); LDL Cholesterol, Calculated 91 mg/dL; Potassium 3.9 mmol/L (3.5-5.1); Sodium 137 mmol/L (136-145); Triglycerides 160 mg/dL (Less than 150)
[2024-07-09] MEDS: Aspirin 81 mg Enteric Coated Tablet PO SCH (09:48)
[2024-07-09] MEDS: Amlodipine 5 MG TAB PO SCH ×2 (09:48→20:22)
[2024-07-10 05:42] LABS: #Basophils 0.03 10x3/uL (0.0-0.2); %Basophils 0.8 % (0.0-1.0); %Eosinophils 5.3 % (0.0-10.0); %Monocytes 11.8 % (0.0-10.0); %Neutrophils 46.3 % (42.0-75.0); Hematocrit 33.5 % (36.0-47.0); Hemoglobin 11.3 g/dL (12.0-16.0); Mean Corpuscular HGB CONC 33.7 g/dL (32.0-36.0); Mean Corpuscular Hemoglobin 30.4 pg (27.0-31.0); Mean Corpuscular Volume 90.1 fL (78.0-98.0); Mean Platelet Volume 10.2 fL (7.4-10.4); Platelet Count 213 10x3/uL (130-400); RBC Distribution Width 12.6 % (11.5-14.5); Red Blood Cell (RBC) Count 3.72 mill/uL (4.20-5.40)
[2024-07-10 06:05] LABS: Anion Gap 12 mmol/L (10-20); BUN (Urea Nitrogen) 21 mg/dL (9.8-20.1); Calc. Creatinine Clearance 95 mL/min (70-130); Carbon Dioxide 24 mmol/L (23-31); Chloride 105 mmol/L (98-107); Estimated GFR 66; Glucose 207 mg/dL (83-110); Potassium 3.9 mmol/L (3.5-5.1); Sodium 137 mmol/L (136-145)
[2024-07-10] MEDS: hydrALAZINE 25 MG TAB PO SCH ×2 (11:16→15:49)
[2024-07-10] MEDS ORDERED: Vancomycin (BATCH) 1.25 GM in Premix 1 BAG IVPB SCH (15:00)
[2024-07-10] MEDS: Sulfameth/Trimethoprim DS 800-160mg TAB PO SCH ×2 (15:50→20:26)
[2024-07-11 05:42] LABS: #Basophils 0.03 10x3/uL (0.0-0.2); %Basophils 0.7 % (0.0-1.0); %Eosinophils 4.6 % (0.0-10.0); %Lymphocytes 34.9 % (21.0-51.0); %Monocytes 9.5 % (0.0-10.0); %Neutrophils 49.6 % (42.0-75.0); Hematocrit 33.9 % (36.0-47.0); Hemoglobin 11.6 g/dL (12.0-16.0); Mean Corpuscular HGB CONC 34.2 g/dL (32.0-36.0); Mean Corpuscular Hemoglobin 30.7 pg (27.0-31.0); Mean Corpuscular Volume 89.7 fL (78.0-98.0); Platelet Count 221 10x3/uL (130-400); RBC Distribution Width 12.6 % (11.5-14.5); Red Blood Cell (RBC) Count 3.78 mill/uL (4.20-5.40)
[2024-07-11 05:58] LABS: Anion Gap 13 mmol/L (10-20); BUN (Urea Nitrogen) 26 mg/dL (9.8-20.1); Calc. Creatinine Clearance 71 mL/min (70-130); Calcium 8.7 mg/dL (7.8-10.44); Carbon Dioxide 23 mmol/L (23-31); Chloride 105 mmol/L (98-107); Estimated GFR 46; Glucose 182 mg/dL (83-110); Potassium 3.6 mmol/L (3.5-5.1); Sodium 137 mmol/L (136-145)
[2024-07-11] MEDS: Calcium Carbonate 500 MG ChewTAB PO PRN (11:12)
[2024-07-11 13:15] VITALS: BP 152/86; TEMP 98.4
== END 2024-07-11 14:28 | disposition home health service (06) | DRG 638 ==
LOC: ERS 12:59 → SURG B 16:48
PROVIDERS: ADMIT Family Medicine; ATTEND Family Medicine
DX: E11.621 Type 2 diabetes mellitus with foot ulcer (principal); F33.9 Major depressive disorder, recurrent, unspecified; L03.115 Cellulitis of right lower limb; E11.628 Type 2 diabetes mellitus with other skin complications; E11.51 Type 2 diabetes mellitus with diabetic peripheral angiopathy without gangrene; I10 Essential (primary) hypertension; E66.01 Morbid (severe) obesity due to excess calories; F03.90 Unspecified dementia, unspecified severity, without behavioral disturbance, psychotic disturbance, mood disturbance, and anxiety; Z88.8 Allergy status to other drugs, medicaments and biological substances; Z79.4 Long term (current) use of insulin; Z79.899 Other long term (current) drug therapy; E78.5 Hyperlipidemia, unspecified; Z90.710 Acquired absence of both cervix and uterus; Z98.890 Other specified postprocedural states; Z79.82 Long term (current) use of aspirin; Z68.39 Body mass index [BMI] 39.0-39.9, adult
CPT/HCPCS: 36415; 36416; 80048; 80053; 80061; 80202; 85025; 86141; 87040; 93923; 96374; 96375; 97139; J0295; J0360; J1650; J2543; J3370; J7030